=== PATIENT | male | born 1960 | race Caucasian/White ===

== ENCOUNTER 2017-09-11 18:06 | Emergency (ER) | payer OTHER, SELFPAY ==
[2017-09-11 18:07] VITALS: BP 155/73; PULSE 58; RESP 16; TEMP 36.8; BMI 35.6
[2017-09-11] MEDS: HYDROcodone Bitartrate/Apap 5/325 Tablet PO (18:50)
--- NOTE | 2017-09-11 19:00 | RAD_ITS ---
XR Knee Complete 4 Views or More INDICATION: chronic R knee pain, increasingly painful to walk and pain with flexion, KNI, History of meniscus repair 9 years ago COMPARISON: None TECHNIQUE: 4 views of the right knee FINDINGS: The medial joint compartment is mildly narrowed and marginal osteophytes are noted. There is no evidence of fracture or dislocation. Patellofemoral joint compartment is narrowed and a suprapatellar knee joint effusion is present. In the posterior aspect of the proximal tibia there is a partially well-circumscribed partially ill-circumscribed 4.6 x 2.3 cm partially lytic partially sclerotic mass seen with mild extension of the distal diaphysis. This finding is of uncertain etiology. Further evaluation with dedicated plain films and possibly cross-sectional imaging is recommended. RAD/Knee 4 or More Views IMPRESSION: Degenerative changes at the right knee involving the medial compartment and patellofemoral compartment with suprapatellar knee joint effusion. 4.6 x 2.3 cm mildly expansile mass in the proximal tibial diaphysis, possibly an incidental finding. Etiology uncertain. Further evaluation indicated. Prior x-rays would be helpful for comparison. at 1929 Reported and signed by: Nadia Stauffer MD Electronically Signed: Nadia Stauffer MD at 19:27 EDT Tel , Service support ,
--- NOTE | 2017-09-11 19:11 | ED.DCSUM_ITS ---
- ER Visit Summary Date of Service: 09/11/17 Chief Complaint: Right knee pain History of Present Illness: The patient is a 56 M resents to the emergency department with right knee pain. Patient had symptoms intermittently for the past 2 years. He had a mechanical fall at work in 2016. He underwent orthopedic evaluation and physical therapy. He was told he may have torn his meniscus. He states that he has been battling with Worker's Comp. to get his knee repaired. Over the past few days, he has had increasing pain in the knee. Today, he had a difficult bending it because of the pain. He denies any new trauma. He states it just feels like it has been locking. Physical Examination: Exam is relatively unremarkable. The patient has a small effusion. Extension is preserved. There is no gross laxity. There is no erythema. Pulses are normal. He does have positive Jaquelin's testing. Test Results: [] Emergency Department Course and Treatment: X-rays were obtained of the knee. The patient does have wearing of the medial compartment and a small effusion. There is also a cyst within the tibia. I did discuss this with the patient. He states he never been told about this. 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 He may eventually need replacement. He will continue crutches. Is given a short course of analgesics and outpatient orthopedic follow-up. Treatment Plan: [] Disposition: Discharge Impression: 1. Right knee effusion This note was generated with [employer] international dictation software. It may contain incorrect words, spelling, and punctuation that were not noted in review of the chart prior to signing ED Disposition - Plan for ED Patient: Disposition: Home or Assisted Living Chief Complaint: Lower Extremity Injury Instructions: ED Meniscal Injury Knee Poss Prescriptions: Hydrocodone Bitart/Apap 5-325 [[place] 5/325] 1 tab PO Q6H PRN PRN 3 Days #10 tab PRN Reason: Pain Naproxen [Naprosyn] 500 mg PO BID PRN #20 tab Referrals: Aaron Leone DO [STAFF PHYSICIAN] - 2 Days
[2017-09-11 20:14] VITALS: RESP 18
== END 2017-09-11 20:15 | disposition home or self-care (01) ==
PROVIDERS: Emergency Provider Emergency Medicine
DX: M25.461 Effusion, right knee (principal)
CPT/HCPCS: 73564; 99284

== ENCOUNTER 2017-12-09 08:49 | Inpatient (IN) | payer OTHER, SELFPAY ==
[2017-11-22 15:24] VITALS: BP 129/72; PULSE 61; RESP 16; TEMP 37.1; O2SAT 97; BMI 37.2
--- NOTE | 2017-11-22 15:48 | SDCEKG_ITS ---
Test Reason : Blood Pressure : / mmHG Vent. Rate : 050 BPM Atrial Rate : 050 BPM P-R Int : 170 ms QRS Dur : 098 ms QT Int : 442 ms P-R-T Axes : 064 -18 016 degrees QTc Int : 402 ms Sinus bradycardia Inferior infarct , age undetermined Abnormal ECG Confirmed by RADHA MC, FREEDOM ([id number]), acquisitions editor ANU CARDENAS ([id number]) on 11/25/2017 3:06:20 PM Referred By: Aaron Leone Confirmed By:FREEDOM GARCIA MD
[2017-11-22 16:33] LABS: Anion Gap 7 (5-15); BUN 26 mg/dL (7-18); Chloride 111 mmol/L (98-107); Creatinine, Serum 1.24 mg/dL (0.70-1.30); EST Glomerular Filtration Rate 64 mL/min (>60); Est Glom Filt Rate - Afr Amer 77 mL/min (>60); Estimated Creatinine Clearance 64.94 ml/min; Glucose 87 mg/dL (74-106); Potassium 4.1 mmol/L (3.5-5.1); Sodium Level 143 mmol/L (136-145)
[2017-11-22 17:10] LABS: Hematocrit 42.5 % (40-54); Hemoglobin 13.9 g/dl (13.0-16.5); Mean Corp Hgb Conc 32.7 g/gl (32-36); Mean Corpuscular Hgb 29.8 pg (27.0-32.0); Red Blood Count 4.67 M/mm3 (4.6-6.2); White Blood Count 7.6 K/mm3 (4.4-11.0)
[2017-11-22 17:11] LABS: Mean Platelet Vol. 10.4 fl (6.2-12.0); Platelet Count 254 K/mm3 (150-450); RBC Distribution Width CV 13.5 % (11.6-14.6); RBC Distribution Width SD 43.8 fl (35.1-43.9); Scan Indicated on CBC? Y/N NO
[2017-12-09] VITALS (11 sets, daily range): BP systolic 109–138; BP diastolic 68–86; PULSE 42–65; RESP 14–18; TEMP 36.2–36.7; O2SAT 94–99; BMI 37.2; BMI 36.6
[2017-12-09] MEDS: Celecoxib 200 MG Capsule 400 MG PO (07:04)
[2017-12-09] MEDS: Acetaminophen 500 MG Tablet 1000 MG PO ×3 (07:05→21:05)
[2017-12-09] MEDS: oxyCODONE HCl Cr 10 MG Tablet PO (07:05)
[2017-12-09] MEDS: Lactated Ringers 1,000 ML 999 ML IV (07:47)
[2017-12-09] MEDS: Cefazolin 2 GM in 0.9% Normal Saline 100 ML IV (08:44)
--- NOTE | 2017-12-09 08:53 | PCM.OPRPT ---
Report of Operation Date of Procedure: 12/09/17 Pre-Operative Diagnosis: Severe end-stage osteoarthritis right knee Post-Operative Diagnosis: Same Surgery/Procedure Performed:: Total knee arthroplasty right Description of Surgical Findings:: Eburnation of bone, periarticular osteophytes consistent with tricompartmental osteoarthritis title i director: Nba Nur Type of Anesthesia:: Spinal Anesthesiologist: Shaji Lawson Special Medications: txa Specimen's removed: Bone and soft tissue Estimated Blood Loss (mL): 100 Fluids Replaced: See anesthesia report Description of Procedure: Implants: [place] triathlon press-fit size 7 CR femur, 7 press-fit tibia, 38 x 11 mm press-fit patella and 9 mm CS articulating surface Indications: Patient has severe end-stage osteoarthritis diagnosed via x-rays in the knee. They have failed all forms of conservative measures including activity modification, injections, anti-inflammatories, use of assistive device. The patient has pain that affects on a daily basis and prevents him from doing things that they enjoyed. They have elected to undergo the above procedure. The risks of the procedure were discussed at length and their questions were answered. Procedure description: The patient was greeted in the preoperative area. The right knee was then marked with a surgical marker. Patient was then taken to or [address]. They were administered a dose of antibiotics as well as tranexamic acid. Once adequate anesthesia was obtained and airway was secured to placed in supine position on the operating room table. A well-padded tourniquet was placed on the affected extremity. Leg was then prepped and draped in the usual sterile fashion from the knee down. Ioban was used on the skin. Surgical timeout was then performed and confirmed with all present. Six-inch Esmarch was used to examine the limb and tourniquet was then inflated to 250 mmHg. A longitudinal incision was then planned and carried out in the anterior aspect of the knee. The dissection was then carried the length of the incision the extensor mechanism was identified. Standard medial parapatellar arthrotomy was then performed revealing severe eburnation of bone and periarticular osteophytes. There is complete loss of cartilage especially in the medial compartment with varus alignment. Anterior fat pad was removed for visualization purposes and the anterior medial aspect of the tibia was skeletonized for exposure to the knee. The knee was then flexed the patella was inverted. Opening reamer was then used in the femur approximately 1 cm anterior to the attachment of the PCL. The intramedullary valgus wand was then placed in the femur set at 5? of valgus. The distal femoral cutting jig was then applied to the femur with anticipated resection of approximately 8 mm. This was then made with a oscillating saw. The sizing guide was then placed referencing off the posterior condyles and also reference off the epicondylar axis. This was measured and the appropriate size 4-in-1 cutting jig was then applied to the distal femur. Anterior posterior cuts were made followed by the anterior and posterior chamfer cuts. These bony pieces and fragments were removed and placed on the back table. Posterior retractor was then utilized and the tibia was subluxed anteriorly. Extramedullary tibial alignment jig was then applied to the tibia referencing off the medial one third of the tibial tubercle the anterior tibial spine the middle aspect of the tibiotalar joint. Also reference off patient's [place]. The tibial cutting jig was then pinned with anticipated resection of 2 mm off of the deficient medial tibial condyle. This cut was made with the oscillating saw. Once this was complete a laminar patient information coordinator was utilized in both medial lateral meniscus were removed and a posterior capsular osteophytes were also removed. Posterior capsule release was performed in the posterior capsule as well as the geniculate arteries are treated with the aqua Ti. The tibia was incised and the appropriate sized tibial tray was then pinned. The femoral trial was then placed and the knee was trialed. Full flexion-extension were easily achieved. The knee seemed to balance quite nicely. Any remaining osteophytes were removed at this time. Once this was complete the patella was everted and the Kenny patella reaming device was then utilized the patella was then placed in the appropriate jig and reamer was then used to remove approximately 9 mm of the undersurface of the patella. A soft tissue remaining was in the way was removed and patella trial was then placed listed maintain excellent tracking using the no thumbs technique. The tibial tray at this point was punched to accommodate the fins of the final implant. The trial components were removed and the knee was copiously irrigated. Did use a cocktail of injection for postoperative pain control. The final components were then press-fit in the standard fashion. tourniquet was deflated and hemostasis was perfect with Bovie cautery as well as the aqua Manus. The knee is once again trialed with different size polyethylenes to ensure the full range of motion was achieved as well as excellent balancing ligamentously was achieved. At this point the knee was copiously irrigated. Final implant was then inserted locking mechanism was engaged and confirmed to be locked. The arthrotomy was then closed with #1 Vicryl aggravate type fashion interrupted. Subcutaneous tissue was closed with 0 Vicryl and surgical seng were placed in the skin. A occlusive silver impregnated dressing was then applied followed by well-padded sterile dressing secured with an Walter wrap. The patient was taken to the PACU in stable condition. No complications known at this time. Postoperatively we will maintain standard total knee postoperative protocol. The use of the physician assistant field hockey coach was integral during this procedure. They assisted with positioning placement of the tourniquet retracting closure and placement of the dressing. The procedure would have been much more difficult without their expertise and assistance - Complications None known - Admit VTE Documentation VTE Present on Admission: Yes VTE Mechan Device Prophylaxis: SCD's, Thigh High NAVID Garciae VTE Pharm Prophylaxis ordered?: Yes
[2017-12-09] MEDS: Scopolamine 1mg/72hr Patch 1 PATCH TD (12:06)
[2017-12-09] MEDS: Famotidine 20 MG Tablet PO (13:15)
[2017-12-09] MEDS: Senna/Docusate Sodium 1 Tablet 2 TABLET PO ×2 (13:16→21:05)
[2017-12-09] MEDS: Magnesium Oxide 400 MG Tablet PO ×2 (13:16→21:05)
[2017-12-09] MEDS: Clopidogrel Bisulfate 75 MG Tablet PO (13:17)
[2017-12-09] MEDS: 0.9% NaCl Peripheral Flush Adult/Peds IV (14:51)
[2017-12-09] MEDS: Ondansetron 4 MG/2 ML Vial IV (14:51)
[2017-12-09] MEDS: Lactated Ringers 1,000 ML 125 ML IV (14:55)
[2017-12-09] MEDS: Cefazolin 1 GM/50 ML BAG IV (15:49)
[2017-12-09] MEDS: Celecoxib 200 MG Capsule PO (21:05)
[2017-12-09] MEDS: Atorvastatin Calcium 20 MG Tablet PO (21:05)
[2017-12-09] MEDS: morphine SR 15 MG Tablet PO (21:06)
[2017-12-10] MEDS: oxyCODONE 5 MG Tablet PO ×4 (01:19→18:50)
[2017-12-10] MEDS: Cefazolin 1 GM/50 ML BAG IV (01:21)
[2017-12-10 03:24] VITALS: BP 136/73; PULSE 61; RESP 16; TEMP 36.8; O2SAT 95
[2017-12-10] MEDS: Acetaminophen 500 MG Tablet 1000 MG PO ×3 (06:07→21:38)
[2017-12-10 06:25] LABS: Hematocrit 37.3 % (40-54); Hemoglobin 12.5 g/dl (13.0-16.5); Mean Corp Hgb Conc 33.5 g/gl (32-36); Mean Corpuscular Hgb 30.7 pg (27.0-32.0); Mean Corpuscular Volume 91.6 fL (80-94); Mean Platelet Vol. 11.1 fl (6.2-12.0); Platelet Count 204 K/mm3 (150-450); RBC Distribution Width CV 13.2 % (11.6-14.6); Red Blood Count 4.07 M/mm3 (4.6-6.2); White Blood Count 10.7 K/mm3 (4.4-11.0)
[2017-12-10 06:34] LABS: Scan Indicated on CBC? Y/N NO
[2017-12-10 06:45] LABS: Anion Gap 5 (5-15); BUN 13 mg/dL (7-18); BUN/Creat Ratio 12.1 RATIO (10-20); Calcium,Total 8.3 mg/dL (8.5-10.1); Chloride 104 mmol/L (98-107); Creatinine, Serum 1.07 mg/dL (0.70-1.30); EST Glomerular Filtration Rate 75 mL/min (>60); Est Glom Filt Rate - Afr Amer 91 mL/min (>60); Glucose 122 mg/dL (74-106); Sodium Level 139 mmol/L (136-145)
--- NOTE | 2017-12-10 07:48 | PCM.PN.ORT ---
Subjective: Patient sitting up in bed eating breakfast. Pain well managed. Denies chest pain, shortness breath, calf pain, nausea vomiting. No other complaints. Objective: Dressings clean dry intact, negative signs and symptoms of DVT. Vital signs labs within normal limits. Patient is afebrile neurovascular is otherwise intact. - Physical Exam General: Alert, Oriented x3, Cooperative HEENT: PERRLA Neurological: Cranial nerves II-XII grossly intact Psych/Mental Status: Normal Affect, Alert and oriented to time, place, person, mood and affect Vital Signs Temp Pulse Resp BP Pulse Ox 98.3 F 61 16 136/73 H 95 12/10/17 03:24 12/10/17 03:24 12/10/17 03:24 12/10/17 03:24 12/10/17 03:24 Oxygen Delivery Method Room Air Weight: 116 kg Body Mass Index (BMI) 36.6 Intake and Output for Last 24 Hours 12/08/17 12/09/17 12/10/17 23:59 23:59 23:59 Intake Total 2188 / 2188 1835 / 1835 Output Total 400 / 400 900 / 900 Balance 1788 / 1788 935 / 935 Laboratory Tests Past 24 Hrs 12/10/17 12/10/17 05:18 05:18 WBC 10.7 RBC 4.07 L Hgb 12.5 L Hct 37.3 L MCV 91.6 MCH 30.7 MCHC 33.5 RDW 13.2 RDW Differential 44.0 H Plt Count 204 MPV 11.1 Sodium 139 Potassium 4.0 Chloride 104 Carbon Dioxide 30.0 Anion Gap 5 BUN 13 Creatinine 1.07 Estim Creat Clear Calc 77.70 Est GFR (MDRD) Af Amer 91 Est GFR (MDRD) Non-Af 75 BUN/Creatinine Ratio 12.1 Glucose 122 H Calcium 8.3 L Medical Necessity - Tobacco Use Smoking Status: Former smoker Tobacco Use: Cigars Assessment/Plan Status post right total knee Plan 1. Continue all pain medications as prescribed 2. Begin physical therapy today, weight-bear as tolerated with walker 3. Resume aspirin 81 mg 1 p.o. daily and Plavix as prescribed 4. Encourage incentive spirometry 5. Possible discharge home tomorrow
[2017-12-10] MEDS: Aspirin 81 MG TAB.CHEW PO (08:04)
[2017-12-10] MEDS: Senna/Docusate Sodium 1 Tablet 2 TABLET PO ×2 (08:05→21:38)
[2017-12-10] MEDS: Celecoxib 200 MG Capsule PO ×2 (08:05→21:37)
[2017-12-10 08:06] VITALS: PULSE 66
[2017-12-10] MEDS: Famotidine 20 MG Tablet PO (08:06)
[2017-12-10] MEDS: Metoprolol Tartrate 50 MG Tablet PO ×2 (08:06→21:37)
[2017-12-10] MEDS: Magnesium Oxide 400 MG Tablet PO ×2 (08:06→21:37)
[2017-12-10] MEDS: Clopidogrel Bisulfate 75 MG Tablet PO (08:08)
[2017-12-10 09:24] VITALS: BP 125/73; PULSE 66; RESP 18; TEMP 36.9; O2SAT 95
[2017-12-10] MEDS: morphine SR 15 MG Tablet PO ×2 (10:27→21:38)
--- NOTE | 2017-12-10 12:47 | CASEMGMT ---
RN BELLA Face to Face with patient for initial transition planning/care coordination assessment. RN CM introduced self and role at [facility]. Patient sitting in chair, alert and oriented, father at bedside. Patient willing to participate in assessment and is able to answer all questions appropriately. Care providers, pharmacy, and demographics verified. See link attached. Patient wishes to discharge home and is setup with [facility] for outpatient therapy with father providing transportation. Patient states he has no further needs or concerns at this time. CM to follow for discharge planning needs that may arise. Disposition Plan: Patient to discharge home with outpatient therapy, family support, and follow-up plans in place.
[2017-12-10 15:22] VITALS: BP 125/63; PULSE 57; RESP 16; TEMP 37.2; O2SAT 98
[2017-12-10 20:31] VITALS: BP 123/64; PULSE 61; RESP 16; TEMP 36.7; O2SAT 99
[2017-12-10 21:37] VITALS: PULSE 60
[2017-12-10] MEDS: Atorvastatin Calcium 20 MG Tablet PO (21:37)
[2017-12-11 02:50] VITALS: BP 124/80; PULSE 58; RESP 16; TEMP 36.8; O2SAT 97
[2017-12-11] MEDS: Acetaminophen 500 MG Tablet 1000 MG PO ×2 (05:03→13:44)
[2017-12-11 06:10] LABS: Hematocrit 37.1 % (40-54); Hemoglobin 12.5 g/dl (13.0-16.5); Mean Corp Hgb Conc 33.7 g/gl (32-36); Mean Corpuscular Hgb 30.9 pg (27.0-32.0); Mean Corpuscular Volume 91.6 fL (80-94); Mean Platelet Vol. 11.1 fl (6.2-12.0); Platelet Count 226 K/mm3 (150-450); RBC Distribution Width CV 13.3 % (11.6-14.6); RBC Distribution Width SD 44.2 fl (35.1-43.9); Red Blood Count 4.05 M/mm3 (4.6-6.2); White Blood Count 15.6 K/mm3 (4.4-11.0)
[2017-12-11 06:14] LABS: Scan Indicated on CBC? Y/N NO
[2017-12-11] MEDS: oxyCODONE 5 MG Tablet PO ×2 (07:26→14:46)
[2017-12-11 07:55] VITALS: BP 107/62; PULSE 62; RESP 16; TEMP 36.8; O2SAT 98
[2017-12-11] MEDS: Senna/Docusate Sodium 1 Tablet 2 TABLET PO (07:55)
[2017-12-11] MEDS: Magnesium Oxide 400 MG Tablet PO (07:55)
[2017-12-11] MEDS: Celecoxib 200 MG Capsule PO (07:55)
[2017-12-11 07:56] VITALS: PULSE 62
[2017-12-11] MEDS: Famotidine 20 MG Tablet PO (07:56)
[2017-12-11] MEDS: Metoprolol Tartrate 50 MG Tablet PO (07:56)
[2017-12-11] MEDS: Clopidogrel Bisulfate 75 MG Tablet PO (07:56)
[2017-12-11] MEDS: Aspirin 81 MG TAB.CHEW PO (07:56)
[2017-12-11] MEDS: morphine SR 15 MG Tablet PO (09:45)
--- NOTE | 2017-12-11 11:48 | PCM.PN.ORT ---
Subjective: Patient sitting at bedside pain well-managed. Patient has no complaints, ready for discharge home. Objective: Dressings clean dry intact it is bloodstained at the distal end of the of the dressing this will be changed prior to discharge. Vital signs labs within normal limits neurovascular is otherwise intact afebrile negative signs and symptoms of DVT. - Physical Exam General: Alert, Oriented x3 HEENT: PERRLA Neurological: Cranial nerves II-XII grossly intact Psych/Mental Status: Alert and oriented to time, place, person, mood and affect Vital Signs Temp Pulse Resp BP Pulse Ox 98.3 F 62 16 107/62 98 12/11/17 07:55 12/11/17 07:56 12/11/17 07:55 12/11/17 07:55 12/11/17 07:55 Oxygen Delivery Method Room Air Weight: 116 kg Body Mass Index (BMI) 36.6 Intake and Output for Last 24 Hours 12/09/17 12/10/17 12/11/17 23:59 23:59 23:59 Intake Total 2188 / 2188 2085 / 2085 830 / 830 Output Total 400 / 400 1300 / 1300 Balance 1788 / 1788 785 / 785 830 / 830 Laboratory Tests Past 24 Hrs 12/11/17 05:22 WBC 15.6 H RBC 4.05 L Hgb 12.5 L Hct 37.1 L MCV 91.6 MCH 30.9 MCHC 33.7 RDW 13.3 RDW Differential 44.2 H Plt Count 226 MPV 11.1 Medical Necessity - Tobacco Use Smoking Status: Former smoker Tobacco Use: Cigars Assessment/Plan Status post right total knee Plan 1. Continue all pain medications as prescribed 2. Continue physical therapy outpatient, weight-bear as tolerated with walker 3. Resume aspirin 81 mg 1 p.o. daily and Plavix as prescribed 4. Follow-up as scheduled 5. Discharge home today
--- NOTE | 2017-12-11 11:56 | DCINST_ITS ---
Discharge Diet: No Restrictions Discharge Activity: May Not Drive, May Shower, Use Walker May shower in (days): 1 Ice area for (Minutes): 20 - each hour while awake. Weight Bearing Status: Weight bearing as tolerated Elevate: Operative Extremity Additional Activity Instructions:: Wear elastic stockings for 2 weeks after your surgery. Call your doctor if your incision/area has: Continuous Slow Oozing, Sudden Increased Bleeding, Increased Pain/ Swelling, Increased Redness, Foul Smelling Discharge Call your doctor if you observe: Fever of 101 or Higher, Coldness, Increased Pain - in extremity, Numbness or Tingling, Change in Color, Calf discomfort, Uncontrolled pain Change Dressing in (Days):: 0 - and daily as needed. Remove Dressing in (days):: 8 Cleanse incision/area with: Soap & Water Allergies/Adverse Reactions: Allergies No Known Allergies Allergy (Verified 11/22/17 15:17) Medications to take at Discharge Atorvastatin Calcium [Lipitor] 20 mg PO DAILY 09/11/17 Clopidogrel Bisulfate [Clopidogrel] 75 mg PO DAILY 09/11/17 Magnesium Oxide 400 mg PO BID 09/11/17 Metoprolol Tartrate 50 mg PO BID 09/11/17 Ramipril 1.25 mg PO DAILY 09/11/17 Acetaminophen [Tylenol] 1,000 mg PO Q8 #90 tab 12/11/17 Aspirin [Aspirin, Baby] 81 mg PO DAILY@0800 tab.chew 12/11/17 Clopidogrel Bisulfate [Plavix] 75 mg PO DAILY #30 tab 12/11/17 Oxycodone [Oxyir] 5 - 10 mg PO Q6H PRN PRN 7 Days #80 tab 12/11/17 Ramipril [Altace] 1.25 mg PO DAILY capsule 12/11/17 Senna/Docusate Sodium [Senokot-S] 2 tablet PO BID tablet 12/11/17 morphine SR tablet [Ms Contin] 15 mg PO BID 7 Days #14 tab 12/11/17 The following prescriptions were given: Oxycodone [Oxyir] 5 - 10 mg PO Q6H PRN PRN 7 Days #80 tab PRN Reason: Mod-Severe Pain (4-10/10) Acetaminophen [Tylenol] 1,000 mg PO Q8 #90 tab Clopidogrel Bisulfate [Plavix] 75 mg PO DAILY #30 tab morphine SR tablet [Ms Contin] 15 mg PO BID 7 Days #14 tab Primary Care Physician: Anais Martin DO [Primary Care Provider] - Test Results: Test results from this visit will be discussed in further detail at your follow- up appointment, if applicable. Please Follow Up With: Nba Nur PA-C When: see pink sheet
[2017-12-11 13:45] VITALS: BP 118/74; PULSE 62; RESP 18; TEMP 36.7; O2SAT 96
== END 2017-12-11 14:51 | disposition home or self-care (01) | DRG 470 ==
PROVIDERS: Admitting Provider Orthopaedic Surgery; Visit Provider Orthopaedic Surgery
PROC: 0SRC0JA Replacement of Right Knee Joint with Synthetic Substitute, Uncemented, Open Approach (ICD-10-PCS; CPT 27447; principal; 2017-12-09 08:20)
DX: M17.11 Unilateral primary osteoarthritis, right knee (principal); I10 Essential (primary) hypertension
CPT/HCPCS: 36415; 80048; 85027; 87081; 93005; 97116; 97162; 97166; 97530; C1776; J7120; A4216; J2405

== ENCOUNTER → 2023-11-11 | Outpatient (CLI) | payer OTHER, SELFPAY ==
[2023-11-11 22:06] LABS: AST(SGOT) 28 U/L (15-37); Alanine Aminotransfer ALT/SGPT 32 U/L (16-61); Albumin, Serum 3.6 g/dL (3.2-5.0); Alkaline Phosphatase 128 U/L (45-117); Anion Gap 6 (5-15); BUN 17 mg/dL (7-18); BUN/Creat Ratio 13.6 RATIO (10-20); Bilirubin, Direct 0.37 mg/dL (0.00-0.30); Calcium,Total 9.5 mg/dL (8.5-10.1); Chloride 108 mmol/L (98-107); Cholesterol 94 mg/dL (200); Creatinine, Serum 1.25 mg/dL (0.70-1.30); EST Glomerular Filtration Rate 62 mL/min (>60); Est Glom Filt Rate - Afr Amer 75 mL/min (>60); Globulin 3.7 g/dL (2.2-4.2); Glucose 108 mg/dL (74-106); High Density Lipoprotein 27 mg/dL; PSA,Total - Annual Screen 3.03 ng/mL (0.00-4.00); Potassium 4.1 mmol/L (3.5-5.1); Protein, Total 7.3 g/dL (6.4-8.2); Sodium Level 141 mmol/L (136-145); Triglycerides 103 mg/dL; Very Low Density Lipoprotein 21 mg/dL (5-40)
== END | disposition home or self-care (01) ==
PROVIDERS: Referring Provider Internal Medicine Cardiovascular Disease; Visit Provider Internal Medicine Cardiovascular Disease
DX: Z12.5 Encounter for screening for malignant neoplasm of prostate (principal); E66.01 Morbid (severe) obesity due to excess calories; I25.10 Atherosclerotic heart disease of native coronary artery without angina pectoris; E78.5 Hyperlipidemia, unspecified; N40.0 Benign prostatic hyperplasia without lower urinary tract symptoms
CPT/HCPCS: 36415; 80048; 80061; 80076; 84153; G0103

== ENCOUNTER → 2024-12-24 | Outpatient (CLI) | payer MEDICARE, OTHER, SELFPAY ==
[2024-12-24 16:37] LABS: Hematocrit 47.5 % (40-54); Hemoglobin 16.0 g/dL (13.0-16.5); Mean Corp Hgb Conc 33.7 g/dL (32-36); Mean Corpuscular Volume 92.1 fL (80-94); Mean Platelet Vol. 10.4 fl (6.2-12.0); Platelet Count 275 K/mm3 (150-450); RBC Distribution Width CV 13.0 % (11.6-14.6); RBC Distribution Width SD 43.8 fl (35.1-43.9); Red Blood Count 5.16 M/mm3 (4.6-6.2); White Blood Count 9.8 K/mm3 (4.4-11.0)
[2024-12-24 17:37] LABS: Cholesterol 103 mg/dL (<=200); Low Density Lipoprotein Calc. 41 mg/dL; PSA,Total- Diagnostic 2.42 ng/mL (0.00-4.00); Triglycerides 184 mg/dL; Very Low Density Lipoprotein 37 mg/dL (5-40); cholesterol:hdl ratio screen 4.06
[2024-12-24 17:44] LABS: AST(SGOT) 24 U/L (<=37); Alanine Aminotransfer ALT/SGPT 20 U/L (<=46); Albumin, Serum 4.1 g/dL (3.4-4.8); Alkaline Phosphatase 127 U/L (40-129); Anion Gap 12 (5-15); BUN 17 mg/dL (4-19); BUN/Creat Ratio 14.4 RATIO (10-20); Bilirubin, Direct 0.41 mg/dL (0.00-0.30); Calcium,Total 9.4 mg/dL (7.6-11.0); Carbon Dioxide 25.3 mmol/L (21.0-32.0); Chloride 104 mmol/L (98-108); Globulin 3.1 g/dL (2.2-4.2); Glucose 120 mg/dL (70-99); Potassium 4.0 mmol/L (3.3-5.1)
== END | disposition home or self-care (01) ==
PROVIDERS: Referring Provider Internal Medicine Cardiovascular Disease; Visit Provider Internal Medicine Cardiovascular Disease
DX: I25.10 Atherosclerotic heart disease of native coronary artery without angina pectoris (principal); E78.5 Hyperlipidemia, unspecified; N40.0 Benign prostatic hyperplasia without lower urinary tract symptoms
CPT/HCPCS: 36415; 80048; 80061; 80076; 84153; 85027

== ENCOUNTER → 2025-01-27 | Outpatient (CLI) | payer MEDICARE, SELFPAY | END | disposition home or self-care (01) | LOC: LAB 11:54 | PROVIDERS: Referring Provider Internal Medicine Cardiovascular Disease; Visit Provider Internal Medicine Cardiovascular Disease | DX: I10 Essential (primary) hypertension (principal) | CPT/HCPCS: 36415; 84443 ==

== ENCOUNTER → 2025-03-02 | Outpatient (CLI) | payer MEDICARE, SELFPAY ==
--- NOTE | 2025-03-02 06:53 | ECHOCS_ITS ---
Reason For Study Reason For Study: ATRIAL FIBRILLATION Procedure This was a 2D Doppler, Color Flow transthoracic echocardiogram. The study was technically difficult. Contrast injection was performed. Exam performed in department. Left Ventricle Normal left ventricular thickness. Mildly dilated left ventricle. Inferior, inferior septal and anteroseptal hypokinesis. Estimated LVEF 35-40%. At least stage I diastolic dysfunction. Right Ventricle Normal right ventricle. Atria The left atrium is mildly enlarged. Normal right atrium. Mitral Valve Trivial to mild mitral valve insufficiency. Tricuspid Valve Trivial tricuspid valve insufficiency. Unable to estimate RV systolic pressure due to insufficient tricuspid regurgitant envelope. Aortic Valve Trisinus/trileaflet aortic valve. Pulmonic Valve The pulmonic valve is not well visualized. Trivial pulmonic valve insufficiency. Great Vessels Normal sized aortic root. Pericardium/Pleural No pericardial effusion. Medication 22 gauge I.V. with prn adaptor inserted into right arm. Diluted definity 3ml given slow IV push to enhance endocardial definition. MMode/2D Measurements & Calculations LVIDd: 5.7 cm IVSd: 1.1 cm LVOT diam: 2.0 cm LVIDs: 4.3 cm LVPWd: 0.89 cm RVDd: 3.8 cm FS: 23.9 % LVOT area: 3.1 cm2 asc Aorta Diam: 3.4 cm LAV(MOD-bp): 83.6 ml LVAd ap4: 42.6 cm2 LAV(MOD-bp) Indexed: 34.9 ml/m2 LVLd ap4: 9.0 cm LAV(MOD-sp2): 120.6 ml EDV(MOD-sp4): 160.5 ml LAV(MOD-sp4): 56.9 ml EDV(sp4-el): 170.8 ml LVAs ap4: 30.9 cm2 LVLs ap4: 8.5 cm ESV(MOD-sp4): 92.7 ml ESV(sp4-el): 95.6 ml EF(MOD-sp4): 42.2 % EF(sp4-el): 44.1 % LVAd ap2: 40.2 cm2 SV(MOD-sp4): 67.8 ml SV(MOD-sp2): 47.9 ml LVLd ap2: 8.6 cm SI(MOD-sp4): 28.3 ml/m2 SI(MOD-sp2): 20.0 ml/m2 EDV(MOD-sp2): 154.7 ml EDV(sp2-el): 158.9 ml LVAs ap2: 31.3 cm2 LVLs ap2: 8.1 cm ESV(MOD-sp2): 106.8 ml ESV(sp2-el): 103.3 ml EF(MOD-sp2): 31.0 % SV(sp4-el): 75.3 ml Ao sinus diam: 3.[address] Junction: 2.7 cm LA dimension(2D): 3.8 cm LA A4 area: 20.8 cm2 RA A4 area: 17.1 cm2 TAPSE: 1.7 cm Time Measurements MV dec time: 0.17 sec Doppler Measurements & Calculations MV E max renetta: 115.6 cm/sec Ao V2 max: 122.8 cm/sec LV V1 max: 104.4 cm/sec Ao max P.1 mmHg LV V1 max P.4 mmHg Ao V2 mean: 85.6 cm/sec LV V1 mean P.6 mmHg Ao mean P.4 mmHg LV V1 mean: 75.2 cm/sec Ao V2 VTI: 24.4 cm LV V1 VTI: 18.2 cm AV (velocity ratio): 0.75 KIT(I,D): 2.3 cm2 KIT(V,D): 2.6 cm2 SV(LVOT): 55.6 ml PA V2 max: 77.2 cm/sec ECHO/Echo Complete W/ Contrast Interpretation Summary Mildly dilated left ventricle. Inferior, inferior septal and anteroseptal hypokinesis. Estimated LVEF 35-40%. At least stage I diastolic dysfunction. The left atrium is mildly enlarged. Trivial to mild mitral valve insufficiency. Ordering Physician: Tamia Jaquez Referring Physician: Tamia Jaquez MD Performed By: Nanci Peña [facility]
--- NOTE | 2025-03-02 12:14 | STRESSREP_ITS ---
Stress Test Report Date: 03/02/2025 Procedure: Pharmacologic stress nuclear imaging study Indications: Coronary artery disease Consent: Per the patient Procedure: The patient underwent pharmacologic (Regadenoson 0.4mg ) evaluation with a peak heart rate of 102 beats per minute (65%predicted maximal heart rate) and a peak blood pressure of 154/90 mmHg. The baseline ECG demonstrated atrial fibrillation. The peak pharmacologic ECG failed to show any ischemic changes. Baseline atrial fibrillation.. There was no complaint of chest discomfort during pharmacologic infusion or recovery. The patient was injected with 14.7 millicuries of technetium 99m Cardiolite and subsequently rest SPECT Cardiolite nuclear imaging was obtained in the horizon awilda long, vertical long, and short axis views. The patient underwent pharmacologic (Regadenoson) evaluation. The patient was injected with 45.0 millicuries of technetium 99m Cardiolite and subsequently stress SPECT Cardiolite nuclear imaging was obtained in the horizontal long, vertical long, and short axis views. A gated Cardiolite study at peak stress was obtained. The examination was stopped secondary to completion of protocol. Rest and stress SPECT Cardiolite nuclear imaging status post realignment, normalization, and attenuation correction demonstrate a moderate-sized fixed defect of the inferior wall extending into the basal inferior septum, suggestive of prior infarct. There is inferior hypokinesis. The reported LVEF is 44%. Impression: 1. Pharmacologic (Regadenoson) evaluation 2. Peak pharmacologic ECG with no ischemic changes. 3. Baseline atrial fibrillation. 5. Fixed inferior wall defect suggestive of prior inferior UT. No significant sabrina-infarct ischemia. 6. The gated Cardiolite study reports an LVEF of 44%. This note was generated with [employer] software. It may contain incorrect words, spelling, and punctuation that were not noted in checking the note before signing.
== END | disposition home or self-care (01) ==
LOC: CVS 06:51
PROVIDERS: Referring Provider Internal Medicine Cardiovascular Disease; Visit Provider Internal Medicine Cardiovascular Disease
DX: I25.10 Atherosclerotic heart disease of native coronary artery without angina pectoris (principal); I10 Essential (primary) hypertension
CPT/HCPCS: 78452; 93017; 93306; A9500; Q9957; A4216; C8929; J2785

== ENCOUNTER → 2025-04-29 | Outpatient (CLI) | payer MEDICARE, SELFPAY ==
[2025-04-29 15:45] LABS: Anion Gap 11 (5-15); BUN 16 mg/dL (4-19); BUN/Creat Ratio 14.3 RATIO (10-20); Calcium,Total 9.5 mg/dL (7.6-11.0); Carbon Dioxide 25.8 mmol/L (21.0-32.0); Chloride 104 mmol/L (98-108); Glucose 108 mg/dL (70-99); Potassium 4.3 mmol/L (3.3-5.1)
== END | disposition home or self-care (01) ==
PROVIDERS: Referring Provider Internal Medicine Cardiovascular Disease; Visit Provider Internal Medicine Cardiovascular Disease
DX: I48.91 Unspecified atrial fibrillation (principal); I25.10 Atherosclerotic heart disease of native coronary artery without angina pectoris; I10 Essential (primary) hypertension
CPT/HCPCS: 36415; 80048